=== PATIENT | female | born 1965 | race Caucasian/White ===

== ENCOUNTER 2025-05-11 19:29 | Emergency (ER) | payer BC ==
[2025-05-11 20:04] VITALS: RESP 22; TEMP 97
--- NOTE | 2025-05-11 20:19 | ERPHSYRPT ---
- History of Present Illness Time Seen by Provider: 05/11/25 20:18 Source: patient Exam Limitations: no limitations Patient Subjective Stated Complaint: pt states that she was in the car when something flew in her eye. pt s states that she had hay in the car Triage Nursing Assessment: pt ambulated into the er; pt is axo x4; pt is restless and pacing; pt was punching hope in the waiting room; axo x4; c/o rt eye pain; pt states 6/10 pain to rt eye; rt eye is red and tearful; skin PDW; no respiratory distress present; vitals wnl Physician History: This is a 59-year-old white female patient who arrives by private vehicle accompanied by spouse with a complaint of right eye pain and foreign body sensation that began approximate 3 PM today prior to arrival. Patient had her car window rolled down when something hit her in the right eye. Throughout the day that patient states that there has been no change in her vision but there has been worsening redness, tearing and pain. Patient is allergic to erythromycin. Timing/Duration: today Location: right eye Severity: mild Apparent Injury: possibly Associated Symptoms: burning, sensitivity to light, redness, foreign body sensation Visual Assistive Devices: None Allergies/Adverse Reactions: erythromycin base Allergy (Verified 05/11/25 19:53) Hx Tetanus, Diphtheria Vaccination/Date Given: Yes Hx Influenza Vaccination/Date Given: No Hx Pneumococcal Vaccination/Date Given: No Travel Risk - International Travel Have you traveled outside of the country in past 3 weeks: No - Emerging Infectious Disease Are you exhibiting symptoms associated with any current EIDs: No - Review of Systems Constitutional: No Symptoms Eyes: No Symptoms, Eye Pain (Right eye), Eye Redness (Right eye), Tearing (Right eye), Foreign Body Sensation (Right eye) Ears, Nose, & Throat: No Symptoms Respiratory: No Symptoms Cardiac: No Symptoms Abdominal/Gastrointestinal: No Symptoms Genitourinary Symptoms: No Symptoms Musculoskeletal: No Symptoms Skin: No Symptoms Neurological: No Symptoms Psychological: No Symptoms Endocrine: No Symptoms Hematologic/Lymphatic: No Symptoms Immunological/Allergic: No Symptoms All Other Systems: Reviewed and Negative - Past Medical History Pertinent Past Medical History: No - Past Surgical History Past Surgical History: Yes Other Surgical History: tumor removal for head; 6, knee; femur; shoulder surgery; finger surgery; lipoma removed from back/ rt shoulder - Social History Smoking Status: Current every day smoker Exposure to second hand smoke: Yes Drug Use: none - Social Determinants of Health Will the patient participate in the screening: Declined to provide - Nursing Vital Signs Nursing Vital Signs: Initial Vital Signs Temperature 97 F 05/11/25 19:55 Pulse Rate 81 05/11/25 19:55 Respiratory Rate 22 05/11/25 19:55 Blood Pressure 103/67 05/11/25 19:55 O2 Sat by Pulse Oximetry 98 05/11/25 19:55 Pain Scale Pain Intensity 4 - Physical Exam General Appearance: no apparent distress, alert, anxiety, thin Vision Acuity Degree Evaluation Phase: Corrected Vision Acuity Right Eye: 20/30 Vision Acuity Left Eye: 20/30 Eye Exam: right eye: corneal abrasion (Approximately 10 to 11 o'clock position), other (Right eye conjunctivitis), left eye: normal inspection, bilateral eye: PERRL Ears, Nose, Throat Exam: normal ENT inspection, moist mucous membranes Neck Exam: normal inspection Respiratory Exam: airway intact, No chest tenderness, No respiratory distress Gastrointestinal Exam: No tenderness Extremity Exam: normal inspection, normal range of motion, pelvis stable Neurologic: alert, oriented x 3, cooperative, substance abuse counselor II-XII nml as tested, nml cerebellar function, nml station & gait, sensation nml Skin Exam: normal color, warm, dry Lymphatic: No adenopathy SpO2 Interpretation: normal SpO2: 97 O2 Delivery: Room Air Procedures - Eye Procedure Time of Procedure: 21:00 Timeout: Performed Tetracaine Drops Administered: Yes Antibiotic Oinment/Drps Admin: right eye - Course Nursing assessment & vital signs reviewed: Yes Ordered Tests: Medication Summary Discontinued Medications Generic Name Dose Route Start Last Admin Trade Name Sheila PRN Reason Stop Dose Admin Tetracaine HCl 4 ml 05/11/25 20:19 05/11/25 20:21 Tetracaine Hcl/Pf 4 Ml Bottle OP 05/11/25 20:20 4 ml STAT STA Administration Tetracaine HCl Confirm 05/11/25 20:21 Tetracaine Hcl/Pf 4 Ml Bottle Administered 05/11/25 20:22 Dose 4 ml OP .STK-MED ONE - Progress Progress: improved, pain not gone completely, re-examined Progress Note: 05/11/25 21:35 My medical decision making and the assignment of low complexity of this patient's medical issue today is based on review of the patient's past medical history, reviewed patient's medication list, reviewed patient drug allergy list, history present illness and physical findings on examination. The workup in this patient does not necessitate any radiographic or laboratory studies. We will examine the patient first under magnification and if necessary we will perform a fluorescein test and look at the right eye under black light. We will use tetracaine drops to provide the patient with some relief of her discomfort in the right eye. Differential diagnosis includes was not limited to foreign body right eye, corneal abrasion right eye, conjunctivitis right eye Counseled pt/family regarding: diagnosis, need for follow-up Medical Desision Making - Independent Historian Additional History obtained from: Relative/friend - Diagnostic Testing Diagnostic test were ordered, analyzed, and reviewed by me: No - Risk of complications Low Risk: Low risk of morbidity from additional dx testing or treatment The pt has a mod risk of morbidity or mortality based on: Need for prescription drug management - Departure Departure Disposition: Home Clinical Impression: Corneal abrasion, right, Conjunctivitis, right eye Condition: Stable Critical Care Time: No Additional Instructions: Use the medication as prescribed. On 05/14/2025, call your customer care consultant to make arrangements for follow-up appointment to be seen early next week. Return to the emergency department if symptoms worsen. Prescriptions: Nickolas/Poly/Hc Eye Drops [Cortisporin Eye Drops] 2 drops OP Q4H #7.5 ml
[2025-05-11] MEDS ORDERED: TETRACAINE 0.5% STERI-UNIT SOL OP ONE (20:21)
[2025-05-11] MEDS: TETRACAINE 0.5% STERI-UNIT SOL OP STA (20:21)
[2025-05-11 21:37] VITALS: O2SAT 97
[2025-05-11] MEDS: Cortisporin Eye Drops OP SCH (21:41)
[2025-05-11] MEDS ORDERED: Cortisporin Eye Drops OP ONE (21:41)
[2025-05-11] MEDS ORDERED: NORCO 5/325 MG ONE (21:43)
[2025-05-11] MEDS: NORCO 5/325 MG PO ONE ×2 (21:43)
[2025-05-11 21:55] VITALS: BP 99/66; PULSE 71
== END 2025-05-11 21:51 | disposition home or self-care (01) ==
LOC: ED 19:29
DX: S05.01XA Injury of conjunctiva and corneal abrasion without foreign body, right eye, initial encounter (principal); W20.8XXA Other cause of strike by thrown, projected or falling object, initial encounter; H10.9 Unspecified conjunctivitis; H57.11 Ocular pain, right eye; Z72.0 Tobacco use